=== PATIENT | male | born 1975 | race Caucasian/White ===

== ENCOUNTER 2022-02-08 19:27 | Inpatient (IN) | payer OTHER ==
[2022-02-08] MEDS ORDERED: LORazepam 2 MG/ML SDV VIAL IM ONE (20:00)
[2022-02-08 20:11] VITALS: BMI 32.7
[2022-02-08] MEDS ORDERED: BISMUTH SUBSALICYLATE 524 MG/30 ML PO PRN (20:41)
[2022-02-08] MEDS ORDERED: METHOCARBAMOL 500 MG TABLET PO PRN (20:41)
[2022-02-08] MEDS ORDERED: MAGNESIUM CITRATE 300 ML BOTTLE PO PRN (20:41)
[2022-02-08] MEDS ORDERED: BENZOCAINE/MENTHOL (CHLORASEPTIC ) LOZENGE MM PRN (20:41)
[2022-02-08] MEDS ORDERED: IBUPROFEN 400 MG TABLET (FP) PO PRN (20:41)
[2022-02-08] MEDS ORDERED: MAGNESIUM HYDROX 2400MG/30ML ORAL SUSPENSION 30 ML CUP PO PRN (20:41)
[2022-02-08] MEDS ORDERED: MAG HYDROX/AL HYDROX/SIMETH 30 ML UNIT-DOSE CUP PO PRN (20:41)
[2022-02-08] MEDS ORDERED: MELATONIN 5 MG TABLETS PO PRN (20:41)
[2022-02-08] MEDS ORDERED: IBUPROFEN 600 MG TABLET (FP) PO PRN (20:41)
[2022-02-08] MEDS ORDERED: ACETAMINOPHEN 325 MG TABLET (FP) PO PRN (20:41)
[2022-02-08] MEDS ORDERED: DICYCLOMINE HCL 10 MG CAPSULE PO PRN (20:41)
[2022-02-08] MEDS ORDERED: P-EPHED 60MG/TRIPROLIDI 2.5MG TABLET PO PRN (20:41)
[2022-02-08] MEDS ORDERED: guaiFENesin 200 MG/10 ML 10 ML UNIT-DOSE CUPS PO PRN (20:41)
[2022-02-08] MEDS ORDERED: LOPERAMIDE HCL 2 MG CAPSULE PO PRN (20:41)
[2022-02-08] MEDS ORDERED: TRIMETHOBENZAMIDE HCL 200MG/2ML INJ IM ONE (20:45)
[2022-02-08] MEDS ORDERED: METOPROLOL TARTRATE 50 MG TABLET (FP) PO ONE (20:45)
[2022-02-08] MEDS ORDERED: LORazepam 1 MG TABLET PO PRN (20:46)
[2022-02-08] MEDS ORDERED: NAPH,MB-DB/K PH,MBDB POWDER PACKET PO ONE (21:00)
[2022-02-08] MEDS ORDERED: CALCIUM 500MG/VIT-D 200 UNITS COMBO TABLET (FP) PO SCH (22:00)
[2022-02-08] MEDS ORDERED: THIAMINE HCL 100 MG TABLET (FP) PO SCH (22:00)
[2022-02-09] MEDS ORDERED: levETIRAcetam 500 MG TABLET (FP) PO ONE (01:50)
[2022-02-09] MEDS ORDERED: LORazepam 2 MG TABLET ONE ×3 (01:50→10:58)
[2022-02-09] MEDS ORDERED: METOPROLOL TARTRATE 25 MG TABLET (FP) ONE (01:51)
[2022-02-09] MEDS: levETIRAcetam 500 MG TABLET (FP) PO SCH ×2 (01:54→11:00)
[2022-02-09] MEDS: LORazepam 2 MG TABLET PO SCH ×3 (01:55→10:59)
[2022-02-09] MEDS ORDERED: PRENATAL VITAMINS W/ FOLIC ACID TABLET (FP) PO SCH (10:00)
[2022-02-09] MEDS ORDERED: CALCIUM 500MG/VIT-D 200 UNITS COMBO TABLET (FP) PO SCH (10:00)
[2022-02-09 10:17] VITALS: BP 116/73; PULSE 102; RESP 16; TEMP 97.4
[2022-02-09 17:24] LABS: MAGNESIUM 1.4 mg/dL (1.8-2.4)
[2022-02-09 17:26] LABS: AMYLASE 100 U/L (25-115)
[2022-02-09 17:30] LABS: PHOSPHOROUS 0.7 mg/dL (2.5-4.9)
[2022-02-10] MEDS ORDERED: LORazepam 1 MG TABLET PO SCH (05:00)
[2022-02-11] MEDS ORDERED: LORazepam 0.5 MG TABLET PO PRN
[2022-02-11] MEDS ORDERED: LORazepam 0.5 MG TABLET PO SCH (05:00)
[2022-02-12] MEDS ORDERED: LORazepam 0.5 MG TABLET PO ONE (05:00)
== END 2022-02-09 11:58 | disposition short-term general hospital (02) | DRG 775 ==
LOC: YASAS 19:27 → Y3N 02-09 10:31
PROVIDERS: ADMIT Allergy & Immunology; ATTEND Surgery
PROC: HZ2ZZZZ Detoxification Services for Substance Abuse Treatment (ICD-10-PCS; principal; 2022-02-09)
DX: F10.230 Alcohol dependence with withdrawal, uncomplicated (principal); D69.6 Thrombocytopenia, unspecified; K74.60 Unspecified cirrhosis of liver; R41.82 Altered mental status, unspecified; R94.5 Abnormal results of liver function studies; Z87.891 Personal history of nicotine dependence
CPT/HCPCS: 36415; 82140; 82150; 83735; 84100; 84132; 86780; 93005; 93010

== ENCOUNTER 2022-02-09 12:16 | Inpatient (IN) | payer OTHER ==
[2022-02-09] MEDS ORDERED: LORazepam 2 MG/ML SDV VIAL IVPUSH ONE ×2 (13:58→18:48)
[2022-02-09] MEDS ORDERED: SODIUM CHLORIDE 0.9% 500 ML INFUS.BAG IV ONE (14:03)
[2022-02-09 14:54] LABS: VENOUS O2 SATURATION 49.8 % (70-80); VENOUS PCO2 41.3 mmHg (38-52); VENOUS PH 7.466 (7.310-7.410)
[2022-02-09 14:56] LABS: BASO % 0.5 % (0-2.0); EOS % 0.7 % (0-4.5); HEMATOCRIT 33.3 % (35.4-49); HEMOGLOBIN 11.6 GM/dL (11.7-16.9); LYMPH % 9.9 % (8-40); MCH 34.5 pg (25.7-33.7); MCHC 34.8 g/dl (32.0-35.9); MEAN CELL VOLUME 99.2 fl (80-96); MEAN PLT VOLUME 8.8 fl (7.5-11.1); MONO % 4.1 % (3.8-10.2); NEUT % 84.8 % (42.8-82.8); PLATELET COUNT 46 10^3/uL (134-434); RBC 3.35 M/mm3 (4.00-5.60); RDW 16.1 % (11.9-15.9); WHITE BLOOD COUNT 4.7 K/mm3 (4.0-10.0)
[2022-02-09 15:04] LABS: INR 1.51 (0.83-1.09); PROTHROMBIN TIME (PATIENT) 17.4 SEC (9.7-13.0)
[2022-02-09 15:07] LABS: ACTIVATED PTT 30.4 SECONDS (25.2-36.5)
[2022-02-09 15:18] LABS: CHLORIDE 95 mmol/L (98-107); SODIUM 137 mmol/L (136-145)
[2022-02-09 15:21] LABS: CALCIUM 7.9 mg/dL (8.5-10.1); CO2 28 mmol/L (21-32); MAGNESIUM 1.4 mg/dL (1.8-2.4)
[2022-02-09 15:22] LABS: ALBUMIN 3.1 g/dl (3.4-5.0); GLUCOSE,RANDOM 109 mg/dL (74-106)
[2022-02-09 15:24] LABS: CREATININE 0.9 mg/dL (0.55-1.3); SGOT/AST 265 U/L (15-37); SGPT/ALT 90 U/L (13-61)
[2022-02-09 15:26] LABS: TOT PROT 6.6 g/dl (6.4-8.2)
[2022-02-09 15:27] LABS: ALK PHOS 140 U/L (45-117); BILIRUBIN,TOTAL 7.6 mg/dL (0.2-1); LDH 364 U/L (87-246)
[2022-02-09 15:37] LABS: ANION GAP 13 MMOL/L (8-16); LIPASE 2591 U/L (73-393); PHOSPHOROUS 0.4 mg/dL (2.5-4.9)
[2022-02-09] MEDS ORDERED: PANTOPRAZOLE SODIUM 40 MG in SODIUM CHLORIDE 100 ML IVPB ONE (15:38)
[2022-02-09] MEDS ORDERED: MAGNESIUM SULF 50% (8.12 MEQ/2 ML-1 GM VIAL) IVPB ONE (15:40)
[2022-02-09] MEDS ORDERED: CEFTRIAXONE 1,000 MG in DEXTROSE 5%-WATER - 50 ML IVPB ONE (15:42)
[2022-02-09] MEDS ORDERED: PANTOPRAZOLE SODIUM 40 MG/100 ML BAG IVPB ONE (15:48)
[2022-02-09] MEDS ORDERED: MAGNESIUM SULFATE IN WATER 2 GM/50 ML IVPB IVPB ONE (15:48)
[2022-02-09] MEDS ORDERED: CEFTRIAXONE 1 GM/50 ML BAG ONE (15:48)
[2022-02-09] MEDS ORDERED: POTASSIUM CHLORIDE TABS 20 MEQ TABLET.ER (FP) PO ONE (15:50)
[2022-02-09] MEDS ORDERED: POTASSIUM CHLORIDE ORAL LIQUID 20 MEQ/15 ML ONE (15:53)
[2022-02-09] MEDS ORDERED: POTASSIUM PHOSPHATE 30 MM in SODIUM CHLORIDE 500 ML IVPB ONE (15:58)
[2022-02-09 16:55] LABS: URINE APPEARANCE CLEAR; URINE BILIRUBIN 1+ (NEGATIVE); URINE COLOR DK YELLOW; URINE GLUCOSE (UA) NEGATIVE (NEGATIVE); URINE KETONE 1+ (NEGATIVE); URINE LEUK ESTERASE NEGATIVE (NEGATIVE); URINE NITRITE NEGATIVE (NEGATIVE); URINE PROTEIN NEGATIVE (NEGATIVE); URINE UROBILINOGEN 4.0 E.U/dl mg/dL (0.2-1.0)
[2022-02-09] MEDS ORDERED: diazePAM CARPU-JECT 10 MG/2 ML DISP.SYRIN IVPUSH ONE ×3 (21:18→23:50)
[2022-02-09] MEDS ORDERED: diazePAM CARPU-JECT 10 MG/2 ML DISP.SYRIN ONE ×3 (21:26→23:58)
[2022-02-09 22:13] LABS: CHLORIDE 99 mmol/L (98-107); SODIUM 140 mmol/L (136-145)
[2022-02-09 22:15] LABS: ANION GAP 15 MMOL/L (8-16); BLOOD UREA NITROGEN 4.7 mg/dL (7-18); CALCIUM 7.8 mg/dL (8.5-10.1); CO2 26 mmol/L (21-32); GLUCOSE,RANDOM 103 mg/dL (74-106)
[2022-02-09 22:16] LABS: MAGNESIUM 1.8 mg/dL (1.8-2.4)
[2022-02-09 22:18] LABS: CREATININE 0.8 mg/dL (0.55-1.3); SGOT/AST 243 U/L (15-37)
[2022-02-09 22:19] LABS: SGPT/ALT 83 U/L (13-61)
[2022-02-09 22:20] LABS: BILIRUBIN,TOTAL 6.8 mg/dL (0.2-1); TOT PROT 6.2 g/dl (6.4-8.2)
[2022-02-09 22:21] LABS: ALK PHOS 135 U/L (45-117)
[2022-02-09 22:24] LABS: PHOSPHOROUS 0.2 mg/dL (2.5-4.9)
[2022-02-09] MEDS ORDERED: NAPH,MB-DB/K PH,MBDB POWDER PACKET PO ONE (22:39)
[2022-02-09] MEDS ORDERED: LACTATED RINGERS SOLUTION 1000 ML INFUS.BAG IV ONE (22:58)
[2022-02-09] MEDS ORDERED: NAPH,MB-DB/K PH,MBDB POWDER PACKET ONE (23:50)
[2022-02-10 01:23] LABS: PHENCYCLIDINE,URINE NEGATIVE (NEGATIVE)
[2022-02-10 01:24] LABS: OPIATES, URI NEGATIVE (NEGATIVE)
[2022-02-10 01:37] LABS: COCAINE, UR NEGATIVE (NEGATIVE); METHADONE, UR NEGATIVE (NEGATIVE); URINE AMPHETAMINES NEGATIVE (NEGATIVE); URINE BARBITURATES NEGATIVE (NEGATIVE); URINE BENZODIAZEPINES POSITIVE (NEGATIVE)
[2022-02-10 01:53] LABS: CHLORIDE 98 mmol/L (98-107); SODIUM 139 mmol/L (136-145)
[2022-02-10] MEDS ORDERED: LACTATED RINGERS SOLUTION 1,000 ML/1,000 ML INFUS.BAG IV ONE (01:54)
[2022-02-10 01:55] LABS: ALBUMIN 3.2 g/dl (3.4-5.0); CALCIUM 7.9 mg/dL (8.5-10.1)
[2022-02-10 01:56] LABS: ANION GAP 16 MMOL/L (8-16); CO2 24 mmol/L (21-32); MAGNESIUM 1.7 mg/dL (1.8-2.4)
[2022-02-10 01:58] LABS: SGOT/AST 267 U/L (15-37)
[2022-02-10 01:59] LABS: CREATININE 0.9 mg/dL (0.55-1.3); SGPT/ALT 88 U/L (13-61)
[2022-02-10 02:00] LABS: BILIRUBIN,TOTAL 7.8 mg/dL (0.2-1); TOT PROT 6.7 g/dl (6.4-8.2)
[2022-02-10 02:01] LABS: ALK PHOS 145 U/L (45-117)
[2022-02-10] MEDS ORDERED: THIAMINE HCL 200 MG/2 ML VIAL IVPB ONE (02:18)
[2022-02-10] MEDS ORDERED: FOLIC ACID 5 MG/1 ML SQ ONE (02:18)
[2022-02-10 02:21] LABS: GLUCOSE,RANDOM 102 mg/dL (74-106); PHOSPHOROUS 0.5 mg/dL (2.5-4.9)
[2022-02-10] MEDS ORDERED: POTASSIUM PHOSPHATE 15 MM in SODIUM CHLORIDE 100 ML IVPB ONE (02:59)
[2022-02-10] MEDS ORDERED: MAGNESIUM 2GM/50ML STERILE WATER IVPB IVPB ONE (03:03)
[2022-02-10] MEDS ORDERED: diazePAM CARPU-JECT 10 MG/2 ML DISP.SYRIN IVPUSH ONE ×5 (03:39→11:39)
[2022-02-10] MEDS ORDERED: LACTATED RINGERS SOLUTION 1,000 ML/1,000 ML INFUS.BAG IV SCH (07:15)
[2022-02-10 07:27] LABS: HEMATOCRIT 32.1 % (35.4-49); HEMOGLOBIN 11.2 GM/dL (11.7-16.9); MCH 34.4 pg (25.7-33.7); MCHC 34.9 g/dl (32.0-35.9); MEAN CELL VOLUME 98.6 fl (80-96); MEAN PLT VOLUME 9.2 fl (7.5-11.1); PLATELET COUNT 43 10^3/uL (134-434); RBC 3.25 M/mm3 (4.00-5.60); RDW 16.6 % (11.9-15.9); WHITE BLOOD COUNT 4.4 K/mm3 (4.0-10.0)
[2022-02-10 07:30] LABS: INR 1.59 (0.83-1.09); PROTHROMBIN TIME (PATIENT) 18.4 SEC (9.7-13.0)
[2022-02-10] MEDS ORDERED: LORazepam 1 MG TABLET PO PRN (07:35)
[2022-02-10] MEDS ORDERED: LORazepam 2 MG/ML SDV VIAL IVPUSH ONE ×2 (07:38→11:44)
[2022-02-10 07:55] LABS: CHLORIDE 100 mmol/L (98-107); SODIUM 140 mmol/L (136-145)
[2022-02-10 07:58] LABS: ANION GAP 13 MMOL/L (8-16); CO2 27 mmol/L (21-32)
[2022-02-10 07:59] LABS: BLOOD UREA NITROGEN 3.9 mg/dL (7-18); CALCIUM 7.5 mg/dL (8.5-10.1)
[2022-02-10 08:00] LABS: ALBUMIN 2.9 g/dl (3.4-5.0); GLUCOSE,RANDOM 108 mg/dL (74-106)
[2022-02-10 08:01] LABS: MAGNESIUM 2.1 mg/dL (1.8-2.4)
[2022-02-10 08:02] LABS: BILIRUBIN,DIRECT 5.6 mg/dL (0.0-0.2); CREATININE 0.7 mg/dL (0.55-1.3); SGOT/AST 213 U/L (15-37); SGPT/ALT 78 U/L (13-61)
[2022-02-10 08:03] LABS: BILIRUBIN,TOTAL 6.9 mg/dL (0.2-1); TOT PROT 5.9 g/dl (6.4-8.2)
[2022-02-10 08:05] LABS: ALK PHOS 130 U/L (45-117)
[2022-02-10] MEDS ORDERED: KCL 10 MEQ IVPB 10 MEQ/100 ML INFUS.BAG IVPB SCH (08:45)
[2022-02-10] MEDS ORDERED: LACTULOSE 10 GM/15 ML BULK BOTTLE RC ONE (09:00)
[2022-02-10] MEDS ORDERED: NAPH,MB-DB/K PH,MBDB POWDER PACKET PO ONE (09:24)
[2022-02-10] MEDS: MUPIROCIN 2% TOPICAL OINTMENT FOR DECOLONIZATION NS SCH ×2 (09:27→22:21)
[2022-02-10] MEDS ORDERED: TRIMETHOBENZAMIDE HCL 200MG/2ML INJ IM PRN (09:33)
[2022-02-10] MEDS ORDERED: ONDANSETRON 4 MG/2 ML VIAL IVPUSH PRN (09:34)
[2022-02-10 09:55] LABS: IRON SERUM 49 ug/dL (50-175)
[2022-02-10] MEDS ORDERED: methylPREDNISolone NA SUCC 40 MG/1 ML VIAL IVPUSH SCH (10:00)
[2022-02-10] MEDS ORDERED: PIPERACILLIN/TAZOB 3.375 GM 3.375 GM in DEXTROSE 5%-WATER - 50 ML IVPB SCH ×2 (10:00→18:00)
[2022-02-10] MEDS ORDERED: ENOXAPARIN NA (PORCINE) 40 MG/0.4 ML DISP.SYRIN SQ SCH (10:00)
[2022-02-10] MEDS ORDERED: THIAMINE HCL 100 MG TABLET (FP) PO SCH (10:00)
[2022-02-10] MEDS ORDERED: THIAMINE HCL 200 MG/2 ML VIAL IVPB SCH (10:00)
[2022-02-10] MEDS ORDERED: PANTOPRAZOLE SODIUM 40 MG VIAL IVPUSH SCH (10:00)
[2022-02-10 10:01] LABS: TOTAL IRON BINDING CAPACITY 152 ug/dL (250-450)
[2022-02-10 10:03] LABS: LIPASE 3902 U/L (73-393)
[2022-02-10] MEDS ORDERED: POTASSIUM PHOSPHATE 30 MM in DEXTROSE 5%-WATER - 250 ML IVPB ONE (10:15)
[2022-02-10] MEDS: LACTULOSE 20 GM/30 ML UDC (FOR ORAL USE ONLY) PO SCH ×2 (10:23→22:29)
[2022-02-10] MEDS: RIFAXIMIN 550 MG TABLET PO SCH ×2 (10:28→22:21)
[2022-02-10] MEDS: LORazepam 2 MG/ML SDV VIAL IVPUSH SCH ×3 (11:14→23:23)
[2022-02-10] MEDS ORDERED: FOLIC ACID 5 MG/1 ML SQ SCH ×2 (11:34→14:00)
[2022-02-10] MEDS: DEXMEDETOMIDINE PREMIX 400 MCG/100 ML BAG IVPB SCH ×3 (11:55→19:50)
[2022-02-10] MEDS ORDERED: PROPOFOL 200 MG/20 ML VIAL IVPUSH ONE ×2 (11:59→12:07)
[2022-02-10] MEDS ORDERED: diazePAM CARPU-JECT 10 MG/2 ML DISP.SYRIN IVPUSH PRN (12:00)
[2022-02-10] MEDS ORDERED: PROPOFOL 20 ML ONE (12:01)
[2022-02-10 12:16] LABS: CALCIUM 7.6 mg/dL (8.5-10.1)
[2022-02-10 12:17] LABS: BLOOD UREA NITROGEN 3.1 mg/dL (7-18)
[2022-02-10 12:20] LABS: CREATININE 0.7 mg/dL (0.55-1.3)
[2022-02-10 12:22] LABS: BILIRUBIN,TOTAL 7.5 mg/dL (0.2-1); TOT PROT 6.2 g/dl (6.4-8.2)
[2022-02-10 12:50] LABS: MAGNESIUM 1.7 mg/dL (1.8-2.4)
[2022-02-10 12:54] LABS: PHOSPHOROUS 1.3 mg/dL (2.5-4.9)
[2022-02-10] MEDS: amLODIPine BESYLATE 10 MG TABLET (FP) PO SCH (13:18)
[2022-02-10] MEDS ORDERED: DEXTROSE 5%-LACTATED RINGERS 1,000 ML IV SCH (13:30)
[2022-02-10] MEDS ORDERED: CEFTRIAXONE 1 GM in DEXTROSE 5%-WATER - 50 ML IVPB SCH (16:00)
[2022-02-10] MEDS: LACTATED RINGERS SOLUTION 1,000 ML/1,000 ML INFUS.BAG IV SCH ×2 (18:00→22:22)
[2022-02-10] MEDS: PIPERACILLIN/TAZOB 3.375 GM 3.375 GM in DEXTROSE 5%-WATER - 50 ML IVPB SCH (18:01)
[2022-02-10 18:40] LABS: CALCIUM 7.8 mg/dL (8.5-10.1)
[2022-02-10 18:42] LABS: ALBUMIN 2.8 g/dl (3.4-5.0); BLOOD UREA NITROGEN 3.7 mg/dL (7-18)
[2022-02-10 18:45] LABS: CREATININE 0.7 mg/dL (0.55-1.3)
[2022-02-10 19:47] LABS: PHOSPHOROUS 2.3 mg/dL (2.5-4.9)
[2022-02-10] MEDS ORDERED: MIRTAZAPINE 15 MG TABLET (FP) ONE (21:54)
[2022-02-10] MEDS: CHLORHEXIDINE GLUCONATE 4% CLEANSER FOR DECOLONIZATION TP SCH (22:21)
[2022-02-10] MEDS: MIRTAZAPINE 30 MG TABLET PO SCH (22:23)
[2022-02-11] MEDS: DEXMEDETOMIDINE PREMIX 400 MCG/100 ML BAG IVPB SCH ×2 (00:43→05:44)
[2022-02-11] MEDS: PIPERACILLIN/TAZOB 3.375 GM 3.375 GM in DEXTROSE 5%-WATER - 50 ML IVPB SCH ×3 (02:13→17:04)
[2022-02-11] MEDS: LACTATED RINGERS SOLUTION 1,000 ML/1,000 ML INFUS.BAG IV SCH ×4 (04:00→18:38)
[2022-02-11] MEDS: LORazepam 2 MG/ML SDV VIAL IVPUSH SCH ×2 (05:44→11:05)
[2022-02-11 08:10] LABS: CHLORIDE 107 mmol/L (98-107); SODIUM 144 mmol/L (136-145)
[2022-02-11 08:13] LABS: ALBUMIN 2.7 g/dl (3.4-5.0); ANION GAP 10 MMOL/L (8-16); BLOOD UREA NITROGEN 5.3 mg/dL (7-18); CALCIUM 7.6 mg/dL (8.5-10.1); CO2 27 mmol/L (21-32); GLUCOSE,RANDOM 142 mg/dL (74-106)
[2022-02-11 08:17] LABS: CREATININE 0.6 mg/dL (0.55-1.3); SGOT/AST 137 U/L (15-37); SGPT/ALT 66 U/L (13-61); TOT PROT 5.9 g/dl (6.4-8.2)
[2022-02-11 08:18] LABS: BILIRUBIN,TOTAL 5.8 mg/dL (0.2-1)
[2022-02-11 08:19] LABS: ALK PHOS 124 U/L (45-117)
[2022-02-11 09:11] LABS: BILIRUBIN,DIRECT 4.6 mg/dL (0.0-0.2)
[2022-02-11 09:12] LABS: PHOSPHOROUS 1.6 mg/dL (2.5-4.9)
[2022-02-11] MEDS: PANTOPRAZOLE SODIUM 40 MG VIAL IVPUSH SCH (09:12)
[2022-02-11] MEDS: MUPIROCIN 2% TOPICAL OINTMENT FOR DECOLONIZATION NS SCH ×2 (09:39→21:51)
[2022-02-11] MEDS ORDERED: SODIUM PHOSPHATE IVPB ONE (10:00)
[2022-02-11] MEDS ORDERED: WATER IVPB ONE (10:00)
[2022-02-11] MEDS ORDERED: DEXTROSE IVPB ONE (10:00)
[2022-02-11] MEDS ORDERED: methylPREDNISolone NA SUCC 40 MG/1 ML VIAL IVPUSH SCH (10:00)
[2022-02-11] MEDS: LACTULOSE 20 GM/30 ML UDC (FOR ORAL USE ONLY) PO SCH ×3 (10:52→21:51)
[2022-02-11] MEDS: FOLIC ACID 1 MG TABLET (FP) PO SCH ×2 (10:52→11:20)
[2022-02-11] MEDS: THIAMINE HCL 100 MG TABLET (FP) PO SCH ×2 (10:53→11:21)
[2022-02-11] MEDS: amLODIPine BESYLATE 10 MG TABLET (FP) PO SCH ×2 (10:53→11:19)
[2022-02-11] MEDS: NAPH,MB-DB/K PH,MBDB POWDER PACKET PO SCH ×2 (10:53→11:19)
[2022-02-11] MEDS: RIFAXIMIN 550 MG TABLET PO SCH ×3 (10:54→21:52)
[2022-02-11 11:10] LABS: HEMATOCRIT 33.8 % (35.4-49); HEMOGLOBIN 11.6 GM/dL (11.7-16.9); MCH 34.4 pg (25.7-33.7); MCHC 34.2 g/dl (32.0-35.9); MEAN CELL VOLUME 100.4 fl (80-96); MEAN PLT VOLUME 8.9 fl (7.5-11.1); PLATELET COUNT 59 10^3/uL (134-434); RBC 3.37 M/mm3 (4.00-5.60)
[2022-02-11 11:32] LABS: ALBUMIN 2.6 g/dl (3.4-5.0); CALCIUM 7.6 mg/dL (8.5-10.1)
[2022-02-11 11:34] LABS: BLOOD UREA NITROGEN 4.8 mg/dL (7-18)
[2022-02-11 11:36] LABS: CREATININE 0.7 mg/dL (0.55-1.3)
[2022-02-11 11:38] LABS: BILIRUBIN,TOTAL 6.1 mg/dL (0.2-1); TOT PROT 5.8 g/dl (6.4-8.2)
[2022-02-11 11:43] LABS: PHOSPHOROUS 1.2 mg/dL (2.5-4.9)
[2022-02-11] MEDS ORDERED: POTASSIUM CHLORIDE ORAL LIQUID 20 MEQ/15 ML PO ONE (12:05)
[2022-02-11] MEDS: KCL 10 MEQ IVPB 10 MEQ/100 ML INFUS.BAG IVPB SCH ×3 (15:09→17:02)
[2022-02-11] MEDS: THIAMINE HCL 200 MG/2 ML VIAL IVPB SCH (15:13)
[2022-02-11 15:27] VITALS: BMI 31.1
[2022-02-11] MEDS ORDERED: POTASSIUM PHOSPHATE 30 MM in DEXTROSE 5%-WATER - 500 ML IVPB ONE (15:30)
[2022-02-11] MEDS ORDERED: LIDOCAINE 5% TOPICAL PATCH TP ONE (16:30)
[2022-02-11] MEDS ORDERED: LACTATED RINGERS SOLUTION 1000 ML INFUS.BAG IV ONE (17:32)
[2022-02-11] MEDS ORDERED: PIPERACILLIN/TAZOB 3.375 GM 3.375 GM in DEXTROSE 5%-WATER - 50 ML IVPB SCH (18:00)
[2022-02-11] MEDS ORDERED: MIRTAZAPINE 15 MG TABLET (FP) ONE (21:49)
[2022-02-11] MEDS: CHLORHEXIDINE GLUCONATE 4% CLEANSER FOR DECOLONIZATION TP SCH (21:51)
[2022-02-11] MEDS: MIRTAZAPINE 30 MG TABLET PO SCH (21:52)
[2022-02-11 22:47] LABS: ALBUMIN 2.9 g/dl (3.4-5.0); BLOOD UREA NITROGEN 6.2 mg/dL (7-18)
[2022-02-11 22:50] LABS: CREATININE 1.1 mg/dL (0.55-1.3)
[2022-02-11 22:52] LABS: BILIRUBIN,TOTAL 7.4 mg/dL (0.2-1); TOT PROT 6.3 g/dl (6.4-8.2)
[2022-02-12] MEDS: LACTATED RINGERS SOLUTION 1,000 ML/1,000 ML INFUS.BAG IV SCH ×2 (01:03→19:13)
[2022-02-12] MEDS: PIPERACILLIN/TAZOB 3.375 GM 3.375 GM in DEXTROSE 5%-WATER - 50 ML IVPB SCH ×3 (01:05→17:26)
[2022-02-12] MEDS: LORazepam 2 MG/ML SDV VIAL IVPUSH PRN ×2 (01:40→22:43)
[2022-02-12] MEDS: LIDOCAINE PATCH REMOVAL MC SCH (04:30)
[2022-02-12] MEDS ORDERED: LORazepam 1 MG TABLET PO SCH (05:00)
[2022-02-12 07:03] LABS: HEMATOCRIT 33.2 % (35.4-49); HEMOGLOBIN 11.3 GM/dL (11.7-16.9); MCH 34.5 pg (25.7-33.7); MCHC 33.9 g/dl (32.0-35.9); MEAN CELL VOLUME 101.6 fl (80-96); MEAN PLT VOLUME 9.2 fl (7.5-11.1); PLATELET COUNT 67 10^3/uL (134-434); RBC 3.26 M/mm3 (4.00-5.60); RDW 17.3 % (11.9-15.9); WHITE BLOOD COUNT 5.9 K/mm3 (4.0-10.0)
[2022-02-12] MEDS ORDERED: ACETAMINOPHEN 1000 MG/100 ML BAG IVPB PRN (07:09)
[2022-02-12 07:13] LABS: INR 1.63 (0.83-1.09); PROTHROMBIN TIME (PATIENT) 18.8 SEC (9.7-13.0)
[2022-02-12 07:23] LABS: ALBUMIN 2.6 g/dl (3.4-5.0)
[2022-02-12 07:25] LABS: CALCIUM 7.4 mg/dL (8.5-10.1); MAGNESIUM 1.1 mg/dL (1.8-2.4)
[2022-02-12 07:26] LABS: ALBUMIN 2.6 g/dl (3.4-5.0); BILIRUBIN,DIRECT 6.1 mg/dL (0.0-0.2)
[2022-02-12 07:28] LABS: BILIRUBIN,TOTAL 7.2 mg/dL (0.2-1); PHOSPHOROUS 2.5 mg/dL (2.5-4.9); TOT PROT 5.6 g/dl (6.4-8.2)
[2022-02-12 07:30] LABS: BILIRUBIN,TOTAL 7.2 mg/dL (0.2-1); TOT PROT 5.6 g/dl (6.4-8.2)
[2022-02-12] MEDS: FOLIC ACID 1 MG TABLET (FP) PO SCH (10:01)
[2022-02-12] MEDS: THIAMINE HCL 200 MG/2 ML VIAL IVPB SCH (10:02)
[2022-02-12] MEDS: amLODIPine BESYLATE 10 MG TABLET (FP) PO SCH (10:03)
[2022-02-12] MEDS: PANTOPRAZOLE SODIUM 40 MG VIAL IVPUSH SCH (10:03)
[2022-02-12] MEDS: NAPH,MB-DB/K PH,MBDB POWDER PACKET PO SCH (10:03)
[2022-02-12] MEDS: LACTULOSE 20 GM/30 ML UDC (FOR ORAL USE ONLY) PO SCH (10:03)
[2022-02-12] MEDS: MUPIROCIN 2% TOPICAL OINTMENT FOR DECOLONIZATION NS SCH ×2 (10:03→21:05)
[2022-02-12] MEDS: RIFAXIMIN 550 MG TABLET PO SCH (10:03)
[2022-02-12] MEDS ORDERED: ACETYLCYSTEINE INJECTION 20% 15,000 MG in DEXTROSE 5%-WATER - 250 ML IVPB ONE ×2 (14:02→15:00)
[2022-02-12] MEDS ORDERED: ACETYLCYSTEINE INJECTION 20% 5,000 MG in DEXTROSE 5%-WATER - 500 ML IVPB ONE (16:00)
[2022-02-12] MEDS ORDERED: ACETYLCYSTEINE INJECTION 20% 10,000 MG in DEXTROSE 5%-WATER - 1,000 ML IVPB ONE (20:00)
[2022-02-12] MEDS ORDERED: MIRTAZAPINE 15 MG TABLET (FP) ONE (20:57)
[2022-02-12] MEDS: CHLORHEXIDINE GLUCONATE 4% CLEANSER FOR DECOLONIZATION TP SCH (21:05)
[2022-02-12] MEDS: MIRTAZAPINE 30 MG TABLET PO SCH (21:05)
[2022-02-13] MEDS ORDERED: LORazepam 0.5 MG TABLET PO PRN
[2022-02-13] MEDS ORDERED: MELATONIN 1 MG TABLET PO ONE (00:30)
[2022-02-13] MEDS: PIPERACILLIN/TAZOB 3.375 GM 3.375 GM in DEXTROSE 5%-WATER - 50 ML IVPB SCH ×3 (01:57→17:01)
[2022-02-13] MEDS ORDERED: LORazepam 0.5 MG TABLET PO SCH (05:00)
[2022-02-13] MEDS: LIDOCAINE PATCH REMOVAL MC SCH (05:41)
[2022-02-13 07:40] LABS: HEMOGLOBIN 11.4 GM/dL (11.7-16.9); MCHC 34.5 g/dl (32.0-35.9); MEAN CELL VOLUME 101.5 fl (80-96); MEAN PLT VOLUME 9.1 fl (7.5-11.1); PLATELET COUNT 72 10^3/uL (134-434); RBC 3.25 M/mm3 (4.00-5.60); RDW 17.9 % (11.9-15.9)
[2022-02-13 08:01] LABS: CHLORIDE 103 mmol/L (98-107); SODIUM 141 mmol/L (136-145)
[2022-02-13 08:04] LABS: MAGNESIUM 0.8 mg/dL (1.8-2.4)
[2022-02-13 08:06] LABS: ALBUMIN 2.5 g/dl (3.4-5.0); ANION GAP 13 MMOL/L (8-16); CALCIUM 7.7 mg/dL (8.5-10.1); CO2 26 mmol/L (21-32); GLUCOSE,RANDOM 125 mg/dL (74-106)
[2022-02-13 08:07] LABS: CREATININE 0.8 mg/dL (0.55-1.3); SGOT/AST 92 U/L (15-37)
[2022-02-13 08:08] LABS: SGPT/ALT 52 U/L (13-61)
[2022-02-13 08:09] LABS: BILIRUBIN,DIRECT 6.4 mg/dL (0.0-0.2); TOT PROT 5.6 g/dl (6.4-8.2)
[2022-02-13 08:10] LABS: PHOSPHOROUS 2.4 mg/dL (2.5-4.9)
[2022-02-13 08:13] LABS: ALK PHOS 121 U/L (45-117)
[2022-02-13 08:15] LABS: INR 2.11 (0.83-1.09); PROTHROMBIN TIME (PATIENT) 24.5 SEC (9.7-13.0)
[2022-02-13 08:17] LABS: ACTIVATED PTT 32.6 SECONDS (25.2-36.5)
[2022-02-13 08:30] LABS: LIPASE 1936 U/L (73-393)
[2022-02-13] MEDS ORDERED: MAGNESIUM OXIDE 400 MG TABLET (FP) PO ONE (09:15)
[2022-02-13] MEDS ORDERED: POTASSIUM CHLORIDE TABS 20 MEQ TABLET.ER (FP) PO ONE (09:17)
[2022-02-13] MEDS ORDERED: MAGNESIUM SULFATE IN WATER 2 GM/50 ML IVPB IVPB ONE ×2 (09:30→19:43)
[2022-02-13] MEDS: FOLIC ACID 1 MG TABLET (FP) PO SCH (09:37)
[2022-02-13] MEDS: amLODIPine BESYLATE 10 MG TABLET (FP) PO SCH (09:37)
[2022-02-13] MEDS ORDERED: FOLIC ACID 1 MG TABLET (FP) PO SCH (10:00)
[2022-02-13] MEDS ORDERED: THIAMINE HCL 100 MG TABLET (FP) PO SCH (10:00)
[2022-02-13] MEDS ORDERED: POTASSIUM PHOSPHATE 30 MM in DEXTROSE 5%-WATER - 500 ML IVPB ONE (10:00)
[2022-02-13] MEDS: NAPH,MB-DB/K PH,MBDB POWDER PACKET PO SCH (10:11)
[2022-02-13] MEDS ORDERED: MAGNESIUM 1GM/D5W - 1 GM/100 ML IVPB IVPB ONE (10:30)
[2022-02-13] MEDS: PANTOPRAZOLE SODIUM 40 MG VIAL IVPUSH SCH (11:00)
[2022-02-13] MEDS: MUPIROCIN 2% TOPICAL OINTMENT FOR DECOLONIZATION NS SCH ×2 (11:01→21:43)
[2022-02-13] MEDS: THIAMINE HCL 200 MG/2 ML VIAL IVPB SCH (12:26)
[2022-02-13 19:27] LABS: CALCIUM 7.3 mg/dL (8.5-10.1)
[2022-02-13 19:28] LABS: ALBUMIN 2.3 g/dl (3.4-5.0); BLOOD UREA NITROGEN 5.3 mg/dL (7-18); MAGNESIUM 1.4 mg/dL (1.8-2.4)
[2022-02-13 19:31] LABS: CREATININE 0.9 mg/dL (0.55-1.3)
[2022-02-13 19:33] LABS: BILIRUBIN,TOTAL 7.2 mg/dL (0.2-1); TOT PROT 5.2 g/dl (6.4-8.2)
[2022-02-13] MEDS ORDERED: CALCIUM GLUC IN NACL, ISO-OSM 1 GM/50 ML BAG IVPB ONE (19:42)
[2022-02-13] MEDS ORDERED: POTASSIUM PHOSPHATE 30 MM in DEXTROSE 5%-WATER - 250 ML IVPB ONE (19:42)
[2022-02-13] MEDS: KCL 10 MEQ IVPB 10 MEQ/100 ML INFUS.BAG IVPB SCH ×3 (21:19→23:52)
[2022-02-13] MEDS ORDERED: MIRTAZAPINE 15 MG TABLET (FP) ONE (21:42)
[2022-02-13] MEDS: MIRTAZAPINE 30 MG TABLET PO SCH (21:44)
[2022-02-13] MEDS: CHLORHEXIDINE GLUCONATE 4% CLEANSER FOR DECOLONIZATION TP SCH (21:44)
[2022-02-14] MEDS: PIPERACILLIN/TAZOB 3.375 GM 3.375 GM in DEXTROSE 5%-WATER - 50 ML IVPB SCH ×3 (02:48→18:07)
[2022-02-14] MEDS ORDERED: LORazepam 0.5 MG TABLET PO ONE (05:00)
[2022-02-14 08:02] LABS: BLOOD UREA NITROGEN 5.2 mg/dL (7-18); CALCIUM 7.3 mg/dL (8.5-10.1)
[2022-02-14 08:03] LABS: ALBUMIN 2.2 g/dl (3.4-5.0); MAGNESIUM 1.9 mg/dL (1.8-2.4)
[2022-02-14 08:05] LABS: CREATININE 0.7 mg/dL (0.55-1.3); PHOSPHOROUS 2.4 mg/dL (2.5-4.9)
[2022-02-14 08:07] LABS: TOT PROT 4.9 g/dl (6.4-8.2)
[2022-02-14 08:12] LABS: BASO % 1.5 % (0-2.0); BILIRUBIN,TOTAL 6.9 mg/dL (0.2-1); EOS % 1.5 % (0-4.5); HEMATOCRIT 28.8 % (35.4-49); MCH 35.9 pg (25.7-33.7); MCHC 34.8 g/dl (32.0-35.9); MEAN CELL VOLUME 103.2 fl (80-96); MONO % 16.9 % (3.8-10.2); NEUT % 63.1 % (42.8-82.8); PLATELET COUNT 87 10^3/uL (134-434); RBC 2.79 M/mm3 (4.00-5.60); RDW 18.2 % (11.9-15.9); WHITE BLOOD COUNT 3.6 K/mm3 (4.0-10.0)
[2022-02-14 08:18] LABS: ADD RBC MORPHOLOGY YES
[2022-02-14] MEDS: NAPH,MB-DB/K PH,MBDB POWDER PACKET PO SCH (09:00)
[2022-02-14] MEDS: PANTOPRAZOLE SODIUM 40 MG VIAL IVPUSH SCH (09:00)
[2022-02-14] MEDS: amLODIPine BESYLATE 10 MG TABLET (FP) PO SCH (09:01)
[2022-02-14] MEDS: FOLIC ACID 1 MG TABLET (FP) PO SCH (09:01)
[2022-02-14] MEDS: THIAMINE HCL 200 MG/2 ML VIAL IVPB SCH (09:02)
[2022-02-14] MEDS: MUPIROCIN 2% TOPICAL OINTMENT FOR DECOLONIZATION NS SCH (09:27)
[2022-02-14 10:49] LABS: ANISOCYTOSIS 2+; MACROCYTOSIS 2+; TARGET CELLS 1+
[2022-02-14] MEDS: LACTATED RINGERS SOLUTION 1,000 ML/1,000 ML INFUS.BAG IV SCH (11:10)
[2022-02-14] MEDS: LIDOCAINE PATCH REMOVAL MC SCH (11:12)
[2022-02-14] MEDS: LORazepam 2 MG/ML SDV VIAL IVPUSH PRN ×2 (18:41→21:47)
[2022-02-14] MEDS ORDERED: MELATONIN 5 MG TABLETS PO ONE (20:40)
[2022-02-14] MEDS ORDERED: TRIMETHOBENZAMIDE HCL 200MG/2ML INJ IM PRN (20:45)
[2022-02-14] MEDS ORDERED: MIRTAZAPINE 15 MG TABLET (FP) ONE (21:06)
[2022-02-14] MEDS: MIRTAZAPINE 30 MG TABLET PO SCH (21:46)
[2022-02-14] MEDS ORDERED: CHLORHEXIDINE GLUCONATE 4% CLEANSER FOR DECOLONIZATION TP SCH (22:00)
[2022-02-14] MEDS ORDERED: MUPIROCIN 2% TOPICAL OINTMENT FOR DECOLONIZATION NS SCH (22:00)
[2022-02-15] MEDS: PIPERACILLIN/TAZOB 3.375 GM 3.375 GM in DEXTROSE 5%-WATER - 50 ML IVPB SCH ×3 (02:54→17:51)
[2022-02-15] MEDS: LIDOCAINE PATCH REMOVAL MC SCH (05:10)
[2022-02-15 09:41] LABS: INR 1.8 (0.83-1.09); PROTHROMBIN TIME (PATIENT) 20.8 SEC (9.7-13.0)
[2022-02-15] MEDS ORDERED: NAPH,MB-DB/K PH,MBDB POWDER PACKET PO SCH (10:00)
[2022-02-15 10:02] LABS: ALBUMIN 2.5 g/dl (3.4-5.0); BLOOD UREA NITROGEN 5.6 mg/dL (7-18)
[2022-02-15 10:05] LABS: CREATININE 0.7 mg/dL (0.55-1.3); PHOSPHOROUS 1.2 mg/dL (2.5-4.9)
[2022-02-15 10:07] LABS: TOT PROT 5.6 g/dl (6.4-8.2)
[2022-02-15 10:09] LABS: BILIRUBIN,TOTAL 8.3 mg/dL (0.2-1)
[2022-02-15 10:11] LABS: MAGNESIUM 1.9 mg/dL (1.8-2.4)
[2022-02-15 10:13] LABS: HEMATOCRIT 31.5 % (35.4-49); HEMOGLOBIN 10.7 GM/dL (11.7-16.9); MCH 35.3 pg (25.7-33.7); MEAN CELL VOLUME 103.7 fl (80-96); MEAN PLT VOLUME 10.1 fl (7.5-11.1); PLATELET COUNT 134 10^3/uL (134-434); RBC 3.03 M/mm3 (4.00-5.60); RDW 18.7 % (11.9-15.9); WHITE BLOOD COUNT 4.1 K/mm3 (4.0-10.0)
[2022-02-15] MEDS: PANTOPRAZOLE SODIUM 40 MG VIAL IVPUSH SCH (10:35)
[2022-02-15] MEDS: amLODIPine BESYLATE 10 MG TABLET (FP) PO SCH (10:36)
[2022-02-15] MEDS: FOLIC ACID 1 MG TABLET (FP) PO SCH (10:36)
[2022-02-15 11:18] LABS: ANISOCYTOSIS 2+; MACROCYTOSIS 2+
[2022-02-15] MEDS: THIAMINE HCL 200 MG/2 ML VIAL IVPB SCH (13:07)
[2022-02-15] MEDS: LORazepam 2 MG/ML SDV VIAL IVPUSH PRN ×3 (13:28→22:25)
[2022-02-15] MEDS ORDERED: PHYTONADIONE 10 MG/1 ML AMP IVPB ONE (15:30)
[2022-02-15] MEDS: NAPH,MB-DB/K PH,MBDB POWDER PACKET PO SCH (18:10)
[2022-02-15] MEDS ORDERED: SODIUM PHOSPHATE - 45 MM in DEXTROSE 5%-WATER - 500 ML IVPB ONE (20:00)
[2022-02-15] MEDS ORDERED: MIRTAZAPINE 15 MG TABLET (FP) ONE (21:51)
[2022-02-15] MEDS: MIRTAZAPINE 30 MG TABLET PO SCH (22:24)
[2022-02-16] MEDS: NAPH,MB-DB/K PH,MBDB POWDER PACKET PO SCH ×3 (02:23→18:33)
[2022-02-16] MEDS: PIPERACILLIN/TAZOB 3.375 GM 3.375 GM in DEXTROSE 5%-WATER - 50 ML IVPB SCH ×3 (03:31→18:33)
[2022-02-16] MEDS: LIDOCAINE PATCH REMOVAL MC SCH (04:51)
[2022-02-16] MEDS: LORazepam 2 MG/ML SDV VIAL IVPUSH PRN ×3 (05:13→22:28)
[2022-02-16] MEDS: PANTOPRAZOLE SODIUM 40 MG VIAL IVPUSH SCH (10:45)
[2022-02-16] MEDS: amLODIPine BESYLATE 10 MG TABLET (FP) PO SCH (10:45)
[2022-02-16] MEDS: SPIRONOLACTONE 25 MG TABLET PO SCH (10:45)
[2022-02-16] MEDS: FOLIC ACID 1 MG TABLET (FP) PO SCH (10:45)
[2022-02-16 13:07] LABS: EOS % 0.9 % (0-4.5); HEMATOCRIT 30.1 % (35.4-49); HEMOGLOBIN 10.3 GM/dL (11.7-16.9); LYMPH % 10.3 % (8-40); MCH 35.7 pg (25.7-33.7); MCHC 34.3 g/dl (32.0-35.9); MEAN CELL VOLUME 104.2 fl (80-96); MEAN PLT VOLUME 9.2 fl (7.5-11.1); MONO % 16.9 % (3.8-10.2); NEUT % 70.9 % (42.8-82.8); PLATELET COUNT 140 10^3/uL (134-434); RBC 2.89 M/mm3 (4.00-5.60); RDW 19.1 % (11.9-15.9); WHITE BLOOD COUNT 5.2 K/mm3 (4.0-10.0)
[2022-02-16 13:14] LABS: INR 1.69 (0.83-1.09); PROTHROMBIN TIME (PATIENT) 19.5 SEC (9.7-13.0)
[2022-02-16] MEDS ORDERED: PHYTONADIONE 10 MG/1 ML AMP IVPB ONE ×2 (13:25→16:30)
[2022-02-16 13:28] LABS: ALBUMIN 2.4 g/dl (3.4-5.0); BLOOD UREA NITROGEN 5.5 mg/dL (7-18); MAGNESIUM 1.9 mg/dL (1.8-2.4)
[2022-02-16 13:31] LABS: CREATININE 0.7 mg/dL (0.55-1.3); PHOSPHOROUS 1.5 mg/dL (2.5-4.9)
[2022-02-16 13:33] LABS: BILIRUBIN,TOTAL 7.2 mg/dL (0.2-1); TOT PROT 5.4 g/dl (6.4-8.2)
[2022-02-16] MEDS: THIAMINE HCL 200 MG/2 ML VIAL IVPB SCH (14:18)
[2022-02-16] MEDS ORDERED: MIRTAZAPINE 15 MG TABLET (FP) ONE (21:48)
[2022-02-16] MEDS: methylPREDNISolone NA SUCC 40 MG/1 ML VIAL IVPUSH SCH (22:22)
[2022-02-16] MEDS: MIRTAZAPINE 30 MG TABLET PO SCH (22:23)
[2022-02-17] MEDS: NAPH,MB-DB/K PH,MBDB POWDER PACKET PO SCH ×3 (02:58→16:46)
[2022-02-17] MEDS: PIPERACILLIN/TAZOB 3.375 GM 3.375 GM in DEXTROSE 5%-WATER - 50 ML IVPB SCH ×3 (02:59→17:10)
[2022-02-17] MEDS: LIDOCAINE PATCH REMOVAL MC SCH (04:20)
[2022-02-17] MEDS: methylPREDNISolone NA SUCC 40 MG/1 ML VIAL IVPUSH SCH (10:50)
[2022-02-17] MEDS: PANTOPRAZOLE SODIUM 40 MG VIAL IVPUSH SCH (10:51)
[2022-02-17] MEDS: THIAMINE HCL 200 MG/2 ML VIAL IVPB SCH (10:52)
[2022-02-17] MEDS: FOLIC ACID 1 MG TABLET (FP) PO SCH (10:52)
[2022-02-17] MEDS: FUROSEMIDE 20 MG TABLET (FP) PO SCH (10:52)
[2022-02-17] MEDS: amLODIPine BESYLATE 10 MG TABLET (FP) PO SCH (10:52)
[2022-02-17] MEDS: SPIRONOLACTONE 25 MG TABLET PO SCH (10:52)
[2022-02-17] MEDS: LORazepam 2 MG/ML SDV VIAL IVPUSH PRN ×2 (12:23→21:33)
[2022-02-17 13:39] LABS: BF WBC & OTHER NUCLEATED CELLS 214 /mm3
[2022-02-17 13:42] LABS: BODY FLUID MACROPHAGES 35 %
[2022-02-17 13:43] LABS: BODY FLUID MESOTHELIAL 3 %
[2022-02-17 16:59] LABS: BASO % 0.6 % (0-2.0); EOS % 0.1 % (0-4.5); HEMATOCRIT 30.7 % (35.4-49); HEMOGLOBIN 10.4 GM/dL (11.7-16.9); LYMPH % 6.7 % (8-40); MCH 35.7 pg (25.7-33.7); MCHC 33.8 g/dl (32.0-35.9); MEAN CELL VOLUME 105.7 fl (80-96); MEAN PLT VOLUME 9.2 fl (7.5-11.1); MONO % 2.9 % (3.8-10.2); NEUT % 89.7 % (42.8-82.8); PLATELET COUNT 155 10^3/uL (134-434); RBC 2.91 M/mm3 (4.00-5.60); RDW 19.6 % (11.9-15.9); WHITE BLOOD COUNT 6.6 K/mm3 (4.0-10.0)
[2022-02-17 17:24] LABS: CALCIUM 8.1 mg/dL (8.5-10.1)
[2022-02-17 17:25] LABS: ALBUMIN 2.3 g/dl (3.4-5.0); BLOOD UREA NITROGEN 12.4 mg/dL (7-18); MAGNESIUM 1.6 mg/dL (1.8-2.4)
[2022-02-17 17:27] LABS: BILIRUBIN,DIRECT 5.3 mg/dL (0.0-0.2); CREATININE 0.9 mg/dL (0.55-1.3)
[2022-02-17 17:29] LABS: BILIRUBIN,TOTAL 6.8 mg/dL (0.2-1); TOT PROT 5.5 g/dl (6.4-8.2)
[2022-02-17 17:59] LABS: ANISOCYTOSIS 3+; MACROCYTOSIS 2+
[2022-02-17 18:05] LABS: PLATELET ESTIMATE ADEQUATE
[2022-02-17 18:18] LABS: INR 1.64 (0.83-1.09); PROTHROMBIN TIME (PATIENT) 18.9 SEC (9.7-13.0)
[2022-02-17 18:21] LABS: ACTIVATED PTT 31.7 SECONDS (25.2-36.5)
[2022-02-17] MEDS ORDERED: MAGNESIUM 2GM/50ML STERILE WATER IVPB IVPB ONE (20:40)
[2022-02-17] MEDS ORDERED: SODIUM PHOSPHATE - 30 MM in DEXTROSE 5%-WATER - 250 ML IVPB ONE (20:41)
[2022-02-17] MEDS ORDERED: MIRTAZAPINE 15 MG TABLET (FP) ONE (20:59)
[2022-02-17] MEDS: MIRTAZAPINE 30 MG TABLET PO SCH (21:21)
[2022-02-18] MEDS: PIPERACILLIN/TAZOB 3.375 GM 3.375 GM in DEXTROSE 5%-WATER - 50 ML IVPB SCH ×3 (01:13→17:33)
[2022-02-18] MEDS: NAPH,MB-DB/K PH,MBDB POWDER PACKET PO SCH ×3 (01:13→17:34)
[2022-02-18] MEDS: LIDOCAINE PATCH REMOVAL MC SCH (05:10)
[2022-02-18 05:53] VITALS: RESP 18
[2022-02-18] MEDS: PANTOPRAZOLE SODIUM 40 MG VIAL IVPUSH SCH (09:28)
[2022-02-18] MEDS: methylPREDNISolone NA SUCC 40 MG/1 ML VIAL IVPUSH SCH (09:28)
[2022-02-18] MEDS: amLODIPine BESYLATE 10 MG TABLET (FP) PO SCH (09:29)
[2022-02-18] MEDS: SPIRONOLACTONE 25 MG TABLET PO SCH (09:29)
[2022-02-18] MEDS: FUROSEMIDE 20 MG TABLET (FP) PO SCH (09:29)
[2022-02-18] MEDS: FOLIC ACID 1 MG TABLET (FP) PO SCH (09:29)
[2022-02-18] MEDS: THIAMINE HCL 200 MG/2 ML VIAL IVPB SCH (09:29)
[2022-02-18 09:34] LABS: BASO % 0.8 % (0-2.0); HEMATOCRIT 37.4 % (35.4-49); HEMOGLOBIN 12.4 GM/dL (11.7-16.9); LYMPH % 18.7 % (8-40); MCH 35.1 pg (25.7-33.7); MCHC 33.3 g/dl (32.0-35.9); MEAN CELL VOLUME 105.5 fl (80-96); MEAN PLT VOLUME 9.3 fl (7.5-11.1); MONO % 5.1 % (3.8-10.2); NEUT % 75.4 % (42.8-82.8); PLATELET COUNT 230 10^3/uL (134-434); RBC 3.54 M/mm3 (4.00-5.60); RDW 19.6 % (11.9-15.9); WHITE BLOOD COUNT 10.1 K/mm3 (4.0-10.0)
[2022-02-18 10:12] LABS: INR 1.38 (0.83-1.09); PROTHROMBIN TIME (PATIENT) 15.9 SEC (9.7-13.0)
[2022-02-18 10:14] LABS: CALCIUM 8.4 mg/dL (8.5-10.1)
[2022-02-18 10:15] LABS: ALBUMIN 2.7 g/dl (3.4-5.0); BLOOD UREA NITROGEN 13.8 mg/dL (7-18); MAGNESIUM 2.2 mg/dL (1.8-2.4)
[2022-02-18 10:18] LABS: BILIRUBIN,DIRECT 5.1 mg/dL (0.0-0.2); CREATININE 0.8 mg/dL (0.55-1.3); PHOSPHOROUS 2.5 mg/dL (2.5-4.9)
[2022-02-18 10:19] LABS: TOT PROT 6.1 g/dl (6.4-8.2)
[2022-02-18 15:07] LABS: BODY FLUID ALBUMIN 1.5 g/dL (Not Estab.)
[2022-02-18] MEDS: LORazepam 2 MG/ML SDV VIAL IVPUSH PRN (15:18)
[2022-02-18 16:36] VITALS: BP 118/78; PULSE 85; TEMP 98.4
== END 2022-02-18 18:28 | disposition home or self-care (01) | DRG 280 ==
LOC: JER 12:16 → JERBED 15:19 → JICU 02-10 01:52 → J8W 02-14 10:41
PROVIDERS: ADMIT Internal Medicine Pulmonary Disease; ATTEND Internal Medicine
PROC: 05HB33Z Insertion of Infusion Device into Right Basilic Vein, Percutaneous Approach (ICD-10-PCS; principal; 2022-02-13)
PROC: B54MZZA Ultrasonography of Right Upper Extremity Veins, Guidance (ICD-10-PCS; 2022-02-13)
PROC: 0W9G3ZZ Drainage of Peritoneal Cavity, Percutaneous Approach (ICD-10-PCS; 2022-02-17)
DX: K70.31 Alcoholic cirrhosis of liver with ascites (principal); K70.11 Alcoholic hepatitis with ascites; I10 Essential (primary) hypertension; F10.239 Alcohol dependence with withdrawal, unspecified; D69.6 Thrombocytopenia, unspecified; E87.8 Other disorders of electrolyte and fluid balance, not elsewhere classified; K59.00 Constipation, unspecified; D68.9 Coagulation defect, unspecified; E87.6 Hypokalemia; E46 Unspecified protein-calorie malnutrition; Z68.32 Body mass index [BMI] 32.0-32.9, adult; D68.8 Other specified coagulation defects; R94.5 Abnormal results of liver function studies; E66.9 Obesity, unspecified; M62.82 Rhabdomyolysis; R41.82 Altered mental status, unspecified; K72.90 Hepatic failure, unspecified without coma; E83.39 Other disorders of phosphorus metabolism; D53.9 Nutritional anemia, unspecified; R11.2 Nausea with vomiting, unspecified; M54.9 Dorsalgia, unspecified
CPT/HCPCS: 0241U-QW; 36415; 49083; 70450-TC; 71045-TC-FY; 72125-TC; 72131-TC; 74177-TC; 74178-TC; 76705-TC; 80048; 80053; 80076; 80307; 81003; 82042; 82105; 82140; 82150; 82272; 82550; 82553; 82607; 82728; 82746; 82803; 82945; 82962; 83540; 83550; 83615; 83690; 83735; 83986; 84100; 84157; 84478; 85025; 85027; 85610; 85730; 86140; 86704; 86708; 86803; 86850; 86900; 86901; 87040; 87045; 87046; 87070; 87075; 87086; 87102; 87116; 87205; 87206; 87210; 87324; 87340; 87449; 87517; 88108; 88305-TC; 93005; 93010; 97116-GP; 97161-GP; 99291